=== PATIENT | male | born 1985 | race Hispanic/Latino ===

== ENCOUNTER 2016-12-13 21:50 | Emergency (ER) | payer OTHER ==
[~2016-12-13] VITALS: Ht 175.3 cm; Wt 95.3 kg
[~2016-12-13 21:50] MED LIST: CLEOCIN HCL150 MG PO; CLINDAMYCIN HC300 M1 PO; CLINDAMYCIN150 MG PO; CORTISPORIN 1%-10 M1 AS; DOXYCYCLINE MO100 MG PO; FUROSEMIDE20 MG PO; IBU800 MG PO; IBUPROFEN800 MG PO; LISINOPRIL10 MG PO; LOPRESSOR 25MG25 MG PO; LOSARTAN POTAS100 MG PO; LOSARTAN POTASS50 MG; METOPROLOL TART50 MG PO; MOBIC 15MG15 MG PO; MOTRIN800 MG PO; NAPROSYN 500 M500 MG PO; NORCO 325 MG-51 TAB PO; PERCOCET 325 MG1 TA2 PO; PERCOCET 5-3251 EACH PO; PERIDEX 480 ML480 ML PO; TRAMADOL50 MG PO; ULTRAM50 M1 PO; VICODIN5-300 PO
--- NOTE | 2016-12-13 22:03 | ED THROAT/DENTAL COMPLAINT ---
History of Present Illness General Chief Complaint: Sore Throat, Dental Pain Stated Complaint: HAD TOOTH PULLED 11/29, STILL PAINFULL Source: patient, old records Exam Limitations: no limitations Vital Signs & Intake/Output Vital Signs & Intake/Output Vital Signs Date Time Temp Pulse Resp B/P B/P Pulse O2 O2 Flow FiO2 Mean Ox Delivery Rate 12/135 98.2 80 16 148/80 98 Room Air Room Air ED Intake and Output 12/14 0000 12/13 1200 Intake Total 0 Output Total Balance 0 Intake, Oral 0 Patient 210 lb Weight Allergies Coded Allergies: Penicillins (Severe, THROAT CLOSURE 12/13/16) amoxicillin (Severe, THROAT CLOSURE 12/13/16) erythromycin base (Severe, THROAT CLOSURE 12/13/16) peach (Severe, RASH, HIVES, RESPIRATORY DISTRESS 12/13/16) Reconcile Medications Furosemide 20 MG TABLET 1 TAB PO EOD FLUID RETENTION (Reported) Ibuprofen 800 MG TABLET 1 TAB PO PRN PAIN (Reported) Ibuprofen 800 MG TABLET 1 TAB PO TID PRN PAIN Lisinopril 10 MG TABLET 1 TAB PO DAILY HEART DISEASE (Reported) Losartan Potassium 100 MG TAB 1 TAB PO DAILY HEART (Reported) Metoprolol Tartrate 50 MG TAB 1 TAB PO BID HEART (Reported) Oxycodone HCl/Acetaminophen (Percocet 5-325 MG Tablet) 5 MG-325 MG TABLET 1 TAB PO BID PRN PAIN Oxycodone HCl/Acetaminophen (Percocet 5-325 MG Tablet) 1 EACH TABLET 1 TAB PO Q6P PRN severe pain Tramadol HCl (Ultram) 50 MG TABLET 1-2 TAB PO Q6PRN PRN moderate pain Triage Nurses Notes Reviewed? yes Onset: Abrupt Duration: week(s): (2), constant Timing: recent history Injury Environment: home Severity: mild, moderate Severity Numbers: 8 Modifying Factors: Worsens With: eating. Associated Symptoms: DENIES HPI: 31-year-old male presents to ER for evaluation complaining of left upper dental pain status post tooth extraction 2 weeks ago at [facility]. He states since then he's been taking ibuprofen without any improvement he was initially prescribed Percocet clindamycin which he finished with good relief however the pain has persisted. He states he is not scheduled to see the oral surgeon again until January 01. Pain is worse with eating palpation. He denies any swelling to his face or gums however the pain is radiating to his left ear. No fever chills chest pain shortness of breath cough or any other complaints. (RADHAMES KIRAN) Past History Travel History Traveled to [place] past 21 day No Medical History Any Pertinent Medical History? 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 BROTHER (myocardial infarction- several cousins had this). Hx Contributory? No (RADHAMES KIRAN) Review of Systems Review of Systems Constitutional: Reports: see HPI. All Other Systems: Reviewed and Negative Comments Review of systems: See HPI, All other systems negative. Constitutional, no chills no fever, no malaise HEENT: No visual changes no sore throat no congestion, Cardiovascular: No chest pain , no palpitation Skin: no rashes, no change in skin Respiratory: No dyspnea no cough no sputum GI: No nausea no vomiting, Muscle skeletal: No joint pain, no joint swelling, no back pain, no neck pain, Neurologic: no headache Psych: No stress Heme/endocrine: No bruising Immunology: No lymphadenopathy (RADHAMES KIRAN) Physical Exam Physical Exam General Appearance: well developed/nourished, no apparent distress, alert Mouth/Throat: pharynx normal, dental tenderness Comments: Well-developed well-nourished patient in no apparent distress. Head/Face: Atraumatic, no maxillary/frontal sinus tenderness, poor dentition no gingival swelling or abscess no facial swelling Eyes: PERRL, EOMI, no conjunctival injection Ear:External auditory canals clear, no erythema, no FB. Nose: atraumatic.Normal inspection: No bleeding, no septal hematoma Throat: Moist mucous membranes.Pharynx normal. No pharyngeal erythema/exudate seen. No stridor/drooling or assymetry. No swelling or edema. Neck: Supple, FROM Back: FROM Cardiovascular: Regular rate and rhythms no murmurs rubs Respiratory: No respiratory distress. Patient speaking in full complete sentences. Breath sounds clear to auscultation bilaterally: NO W/R/R Extremities: full range of motion Neuro: awake, alert, and oriented to person, place and time. There were no obvious focal neurologic abnormalities. Skin: Warm & dry;No appreciable rash on exposed skin Psych: Mood affect normal, normal memory normal judgment. Core Measures ACS in differential dx? No Severe Sepsis Present: No Septic Shock Present: No (RADHAMES KIRAN) Progress Differential Diagnosis: carious tooth, epiglottitis, Ludwigs angina, odontogenic abscess, sunny-tonsillar abscess, strep pharyngitis, tooth fracture Plan of Care: I had an extensive conversation regarding need for close follow up with their dentist/primary care physician this week as well as return precautions. I answered all of their questions, they feel comfortable with the plan and follow- up care. I discussed with the patient/family the medications that they will receive. I gave them signs and symptoms that could indicate an adverse reaction. I have advised them to limit their activities until they can see how they respond to the medication. (RADHAMES KIRAN) Departure Departure Time of Disposition: 2205 Disposition: HOME OR SELF CARE Condition: Stable Clinical Impression Primary Impression: Toothache Referrals: JAVID LEE MD (PCP/Family) Additional Instructions: Follow-up with your dentist tomorrow. This emergency room cannot and will not continue to prescribe you narcotic pain medication for your dental pain Departure Forms: Customer Survey General Discharge Information Prescriptions: Current Visit Scripts Oxycodone HCl/Acetaminophen (Percocet 5-325 MG Tablet) 1 TAB PO BID PRN PAIN #10 TAB Ibuprofen 1 TAB PO TID PRN PAIN #30 TAB (RADHAMES KIRAN) PA/MEDICARE CONTACT SPECIALIST Co-Sign Statement Statement: ED Attending supervision documentation- [] I saw and evaluated the patient. I have also reviewed all the pertinent lab results and diagnostic results. I agree with the findings and the plan of care as documented in the PA's/MEDICARE CONTACT SPECIALIST's documentation. [x] I have reviewed the ED Record and agree with the PA's/MEDICARE CONTACT SPECIALIST's documentation. [] Additions or exceptions (if any) to the PAs/MEDICARE CONTACT SPECIALIST's note and plan are summarized below: [] (FARRAH JONES,QIAN Hilton)
[2016-12-13 22:05] VITALS: BP 148/80
[2016-12-13] MEDS ORDERED: PERCOCET 5-3251 EACH PO (22:07)
[2016-12-13] MEDS ORDERED: IBUPROFEN800 M1 PO (22:07)
== END 2016-12-13 22:14 ==
LOC: ERH 21:50
DX: K08.89 Other specified disorders of teeth and supporting structures (principal)